=== PATIENT | male | born 1995 | race Caucasian/White ===

== ENCOUNTER 2019-04-23 14:48 | Inpatient (IN) | payer MEDICAID, SELFPAY ==
[2019-04-23 14:50] VITALS: BP 121/86; PULSE 69; RESP 17; TEMP 36.7; O2SAT 96; BMI 25.7
--- NOTE | 2019-04-23 15:20 | ED.DCSUM_ITS ---
History of Present Illness Chief Complaint: Suicidal Informant: Patient Onset: Days Context: Gradual Onset Timing: Continuous Associated Symptoms: Depressed, Suicidal Thoughts. Negative for: Visual Hallucinations, Auditory Hallucinations Specific plan (suicidal thought): No plan Narrative: Patient is a 23-year-old male with history of depression suicidal ideations as well as heroin abuse presenting with increased depression and suicidal ideations. Patient states over the past week he has had relationship issues and that is caused him to spiral. He also notes he has been off of Zoloft for the past 1 to 2 weeks. He has had increased thoughts of wanting to kill himself and feeling that he be better off . He denies any specific plan. About 4 months ago he was admitted to [facility] for suicidal ideations and drug abuse. Patient called them today and they recommended he come to the nearest emergency room for further evaluation and possible transfer to their facility. Patient notes he is also been using heroin again over the last week. He states he snorts it. He denies any other complaints at this time. He denies any homicidal ideations. He denies any hallucinations. Patient lives home alone. Prior similar symptoms: Yes Past Medical History - Allergies and Home Meds Allergies/Adverse Reactions: Allergies No Known Allergies Allergy (Verified 04/23/19 14:49) Past Medical History: - - Depression Surgical History: - - Left knee surgery Lives: Alone Smoking Status: Current every day smoker Drugs: Heroin - Family History Maternal Family History: Reports: - - He reported that his mother has depression. Also previously his mother was using drugs Paternal Family History: Reports: - - Previously his father was using drugs Review of Systems General: Denies: Chills, Fever, Sweats Eyes: Denies: Visual changes - bilaterally, Diplopia ENT: Denies: Rhinorrhea, Sore throat Cardiovascular: Denies: Chest pain, Palpitations Respiratory: Denies: Dyspnea, Cough, Dyspnea on exertion Gastrointestinal: Denies: Abdominal pain, Nausea, Vomiting, Diarrhea, Melena, Hematochezia Genitourinary: Denies: Dysuria, Hematuria, Frequency Musculoskeletal: Denies: Back pain, Extremity Pain Skin: Denies: Rash, Wounds Neurological: Denies: Headache, Weakness, Numbness Psych: Reports: Depression, Suicidal thoughts, Suicidal ideations. Denies: Anxiety Physical Exam Vital Signs/Narrative: Vital Signs Temp Pulse Resp BP Pulse Ox 04/23/19 14:50 98.1 F 69 17 121/86 H 96 Inital Vital Signs reviewed: Yes General: Well nourished, Well developed Head: Normocephalic, Atraumatic Eyes: Perrl, EOMI ENT: Moist mucous membranes, No rhinorrhea Neck: Supple, Nontender Cardiovascular: Regular rate, Regular rhythm, No murmurs Respiratory: No distress, CTA bilaterally, Chest nontender Abdomen: Soft, Nontender, Nondistended, Normal bowel sounds Back: Nontender, Normal Inspection Extremities: Nontender, No Edema Skin: Normal color, No rash Neurological: Alert, Oriented x3, Cranial nerves II-XII grossly intact, Normal Strength, Normal Sensation Psych: Normal Speech Pattern, Normal Stable Appropriate Affect, Good Insight, Normal Appearance, Depressed, Suicidal thoughts. Negative for: Homicidal thoughts, Hallucinations, Delusions, Paranoid Ideation Diagnostic/Tx/Re-eval Laboratory Data 04/23/19 04/23/19 04/23/19 15:24 15:24 15:24 WBC 13.0 H RBC 4.77 Hgb 14.1 Hct 43.4 MCV 91.0 MCH 29.6 MCHC 32.5 RDW Std Deviation 40.6 RDW Coeff of González 12.4 Plt Count 430 MPV 8.1 Immature Gran % (Auto) 0.400 Neut % (Auto) 76.6 H Lymph % (Auto) 16.2 L [place] % (Auto) 5.1 Eos % (Auto) 1.3 Baso % (Auto) 0.4 Absolute Neuts (auto) 10.0 H Absolute Lymphs (auto) 2.10 Nucleated RBC % 0 Sodium 140 Potassium 4.1 Chloride 104 Carbon Dioxide 31.0 Anion Gap 5 BUN 12 Creatinine 0.96 Estim Creat Clear Calc 135.25 Est GFR (MDRD) Af Amer 123 Est GFR (MDRD) Non-Af 102 BUN/Creatinine Ratio 12.5 Glucose 95 Calcium 9.4 Urine Color Urine Clarity Urine pH Ur Specific [place] Urine Protein Urine Glucose (UA) Urine Ketones Urine Occult Blood Urine Nitrite Urine Bilirubin Urine Urobilinogen Ur Leukocyte Esterase Urine RBC Urine WBC Ur Squamous Epith Cells Urine Bacteria Urine Mucus Urine Opiates Screen Urine Methadone Screen Ur Barbiturates Screen Ur Phencyclidine Scrn Ur Amphetamines Screen U Methamphetamin-MDMA U Benzodiazepines Scrn Urine Cocaine Screen U Cannabinoids Screen Ur Drug Screen Comment Ethyl Alcohol < 3.0 04/23/19 04/23/19 15:40 15:40 WBC RBC Hgb Hct MCV MCH MCHC RDW Std Deviation RDW Coeff of González Plt Count MPV Immature Gran % (Auto) Neut % (Auto) Lymph % (Auto) [place] % (Auto) Eos % (Auto) Baso % (Auto) Absolute Neuts (auto) Absolute Lymphs (auto) Nucleated RBC % Sodium Potassium Chloride Carbon Dioxide Anion Gap BUN Creatinine Estim Creat Clear Calc Est GFR (MDRD) Af Amer Est GFR (MDRD) Non-Af BUN/Creatinine Ratio Glucose Calcium Urine Color Yellow Urine Clarity Clear Urine pH 7.0 Ur Specific [place] 1.015 Urine Protein Negative Urine Glucose (UA) Normal Urine Ketones 5 H Urine Occult Blood Negative Urine Nitrite Negative Urine Bilirubin Negative Urine Urobilinogen Normal Ur Leukocyte Esterase Negative Urine RBC 0 SEEN Urine WBC 0 SEEN Ur Squamous Epith Cells 0 SEEN Urine Bacteria 0 SEEN Urine Mucus 0 SEEN Urine Opiates Screen POSITIVE H Urine Methadone Screen NEGATIVE Ur Barbiturates Screen NEGATIVE Ur Phencyclidine Scrn NEGATIVE Ur Amphetamines Screen NEGATIVE U Methamphetamin-MDMA NEGATIVE U Benzodiazepines Scrn NEGATIVE Urine Cocaine Screen NEGATIVE U Cannabinoids Screen NEGATIVE Ur Drug Screen Comment Ethyl Alcohol Restraints applied: No Evaluated for depression and suicidal ideations. He does not have a plan but is requesting psychiatric help. He does live home alone. Patient does have a mild leukocytosis but no obvious source of infection. His vital signs are normal. Likely this is just reactive. Antibiotics not indicated. Urine drug screen is positive for opioids. Patient does admit to heroin use. Patient is medically cleared and crisis is consulted for further psychiatric evaluation. Patient is cooperative and stable in the emergency room. Evaluated by crisis. At this time they do not think he meets criteria for involuntary admission. Due to his insurance he is not able to be accepted any inpatient psychiatric hospital. He is evaluated by 180 who is concerned that he is having acute withdrawal symptoms. Patient does admit to using 1 g of fentanyl/heroin daily. He last used at noon today. Patient is interested in detox. Because of this, he will be admitted to medicine for inpatient detox and likely transition to residential services for detox and psychiatric care at that time. I do think he is safe for this plan and patient is agreeable. ED Disposition - Plan for ED Patient: Disposition: Acute [facility] Diagnosis: Suicidal ideation, Opioid abuse
[2019-04-23 15:41] LABS: Basophil# 0.05 X10^3/uL; Basophil% 0.4 % (0-1); Eosinophil# 0.17 X10^3/uL; Eosinophils% 1.3 % (0-5); Hematocrit 43.4 % (40-54); Hemoglobin 14.1 g/dL (13.0-16.5); Lymphocyte % 16.2 % (19-41); Mean Corp Hgb Conc 32.5 g/dL (32-36); Mean Corpuscular Hgb 29.6 pg (27.0-32.0); Mean Platelet Vol. 8.1 fl (6.2-12.0); Monocyte# 0.66 X10^3/uL; Monocyte% 5.1 % (0-10); NRBC Flagged by Analyzer 0 % (0-5); Neutrophil # 9.95 X10^3/uL (2.7-7.7); Neutrophil % 76.6 % (47-70); Platelet Count 430 K/mm3 (150-450); RBC Distribution Width CV 12.4 % (11.6-14.6); RBC Distribution Width SD 40.6 fl (35.1-43.9); Red Blood Count 4.77 M/mm3 (4.6-6.2)
[2019-04-23 15:47] LABS: Anion Gap 5 (5-15); BUN 12 mg/dL (7-18); BUN/Creat Ratio 12.5 RATIO (10-20); Calcium,Total 9.4 mg/dL (8.5-10.1); Chloride 104 mmol/L (98-107); Creatinine, Serum 0.96 mg/dL (0.70-1.30); EST Glomerular Filtration Rate 102 mL/min (>60); Est Glom Filt Rate - Afr Amer 123 mL/min (>60); Estimated Creatinine Clearance 135.25 ml/min; Glucose 95 mg/dL (74-106); Potassium 4.1 mmol/L (3.5-5.1); Sodium Level 140 mmol/L (136-145)
[2019-04-23 16:09] LABS: Bacteria 0 SEEN /hpf (None Seen); Mucous, Urine 0 SEEN /hpf (<or=2+); Red Blood Cells-Urine 0 SEEN /hpf (0-5); Squamous Epithelial Cells - UA 0 SEEN /hpf (0-5); White Blood Cells 0 SEEN /hpf (0-5)
[2019-04-23 16:21] LABS: Color, Urine Yellow (Yellow); Glucose, Dipstick Normal (Normal); Ketone-Dipstick 5 mg/dl (Negative); Leukocyte Esterase-Dipstick Negative /ul (Negative); Nitrite-Dipstick Negative (Negative); Occult Blood-Urine Negative /ul (Negative); Protein-Dipstick Negative (Negative); Specific Gravity, Urine 1.015 (1.002-1.030); Urine Bilirubin Dipstick Negative (Negative); Urine Clarity Clear (Clear); Urine Urobilinogen Normal (Normal)
[2019-04-23 16:30] LABS: Amphetamine Urine VISTA NEGATIVE (<1000 ng/mL); Barbiturate Urine VISTA NEGATIVE (< 200 ng/mL); Benzodiazepine Urine VISTA NEGATIVE (< 200 ng/mL); Cocaine Urine VISTA NEGATIVE (< 300 ng/mL); Ecstacy Urine VISTA NEGATIVE (< 500 ng/mL); Methadone Urine VISTA NEGATIVE (< 300 ng/mL); PCP Urine VISTA NEGATIVE (< 25 ng/mL); THC Urine VISTA NEGATIVE (< 50 ng/mL); Vista UDS pH Range 6
--- NOTE | 2019-04-23 16:37 | ED.RN ---
PT UNDER 1:1 OBSERVATION BEGINNING IN TRIAGE AFTER SUICIDE RISK DETERMINED.
[2019-04-23 16:48] LABS: Alcohol, Blood (Medical)-Serum < 3.0 mg/dL
[2019-04-23 18:08] VITALS: RESP 16
--- NOTE | 2019-04-23 19:52 | HP.PCM_ITS ---
Problem List (1) Opioid abuse Status: Acute (2) Suicidal ideation Status: Acute History of Present Illness Date of Admission: 04/23/19 Chief Complaint: detox from opioids and suicidal ideation. The patient is a 23 year old M with a significant history of anxiety; depression and opioid abuse who presented for detoxification and for suicidal ideation. Patient uses heroin and fentanyl. He reports that it has been a long time since he used heroin. Last time he used fentanyl was about noon of 04/23/2019 which was few hours before presentation. He snorts the heroin. He is about 1 g of heroin every day. He thinks that he is beginning to withdraw. He reports his withdrawal symptoms as diaphoresis; muscle aches and general body tremors. He reports suicidal ideation without any plan. Patient was evaluated at the emergency department by crisis and the plan is to admit the patient for detoxification and possibly consider an inpatient 180 admission afterwards. Past Medical History Medical History: Medical History (Last Reviewed 04/23/19 @ 21:00 by Jeremy Akers MD) Opioid dependence F11.20 Allergies No Known Allergies Allergy (Verified 04/23/19 14:49) Home Medications: Ambulatory Orders Medication Instructions Recorded Buprenorphine HCl/Naloxone HCl 1 ea SL BID 04/23/19 [Buprenorp-Nalox 4-1 mg Sl Film] Gabapentin [Neurontin] 300 mg PO QHS 04/23/19 Hydroxyzine Pamoate 50 mg PO TID PRN 04/23/19 Mirtazapine 7.5 mg PO QHS 04/23/19 Quetiapine Fumarate 50 mg PO QHS 04/23/19 Quetiapine Fumarate 100 mg PO QHS 04/23/19 Sertraline HCl 50 mg PO DAILY 04/23/19 Surgical History: - - Left knee surgery Lives: Alone Smoking Status: Former smoker Drugs: Heroin - *Family History Maternal History Items: - - He reported that his mother has depression. Also previously his mother was using drugs Paternal History Items: - - Previously his father was using drugs Review of Systems Constitutional: Denies: Chills, Fever, Weight Change HEENT: Denies: Head Aches, Sinus Congestion, Sinus Drainage Cardiovascular: Denies: Chest Pain, Palpitations Respiratory: Denies: Cough, Shortness of breath at rest, Sputum production Gastrointestinal: Denies: Abdominal Pain, Nausea, Vomiting Genitourinary: Denies: Dysuria Musculoskeletal: Reports: Muscle pain. Denies: Joint Pain, Joint Tenderness Skin: Denies: Rash, Wounds Neurological: Denies: Numbness, Tingling, Focal weakness Psychiatric: Reports: Anxiety, Depression, Suicidal Ideations. Denies: Homicidal Ideations Hematologic/ Lymphatic: Denies: Easy Bruising, Easy Bleeding VTE Information - Inpt Only VTE Present on Admission: No VTE Mechan Device Prophylaxis: None VTE Pharm Prophylaxis ordered?: No Reason prophylaxis not ordered:: Treatment Not Indicated - Low risk encouraged ambulate Patient Problems: Active and Suspected Problems (Last Updated 04/23/19 @ 20:25 by Jeremy Akers MD) Opioid abuse (Acute) Suicidal ideation (Acute) - Physical Exam Vitals/I&O's: Vital Signs Temp Pulse Resp BP Pulse Ox 98.1 F 69 16 121/86 H 96 04/23/19 14:50 04/23/19 14:50 04/23/19 18:08 04/23/19 14:50 04/23/19 14:50 Oxygen Delivery Method Room Air Weight: 88.451 kg Body Mass Index (BMI) 25.7 General: Alert, Oriented x3, Cooperative HEENT: Atraumatic, PERRLA, EOMI, Normocephalic Neck: Supple, No JVD, Negative Carotid Bruits Lungs: Clear to auscultation, Normal air movement Cardiovascular: Regular rate, No murmurs Abdomen: Bowel Sounds Present, Soft, Non Tender Extremities: No edema, Capillary Refill Less than 3 Seconds Skin: No rashes, No breakdown Musculoskeletal: No Tenderness to Palpation of Joints or Extremities Neurological: Cranial nerves II-XII grossly intact Psych/Mental Status: Normal Affect, Appropriate Laboratory Results 04/23/19 15:24: WBC 13.0 H, RBC 4.77, Hgb 14.1, Hct 43.4, MCV 91.0, MCH 29.6, MCHC 32.5, RDW Std Deviation 40.6, RDW Coeff of González 12.4, Plt Count 430, MPV 8.1, Immature Gran % (Auto) 0.400, Neut % (Auto) 76.6 H, Lymph % (Auto) 16.2 L, [place] % (Auto) 5.1, Eos % (Auto) 1.3, Baso % (Auto) 0.4, Absolute Neuts (auto) 10.0 H, Absolute Lymphs (auto) 2.10, Nucleated RBC % 0 04/23/19 15:24: Sodium 140, Potassium 4.1, Chloride 104, Carbon Dioxide 31.0, Anion Gap 5, BUN 12, Creatinine 0.96, Estim Creat Clear Calc 135.25, Est GFR (MDRD) Af Amer 123, Est GFR (MDRD) Non-Af 102, BUN/Creatinine Ratio 12.5, Glucose 95, Calcium 9.4 04/23/19 15:24: Ethyl Alcohol < 3.0 04/23/19 15:40: Urine Opiates Screen POSITIVE H, Urine Methadone Screen NEGATIVE, Ur Barbiturates Screen NEGATIVE, Ur Phencyclidine Scrn NEGATIVE, Ur Amphetamines Screen NEGATIVE, U Methamphetamin-MDMA NEGATIVE, U Benzodiazepines Scrn NEGATIVE, Urine Cocaine Screen NEGATIVE, U Cannabinoids Screen NEGATIVE, Ur Drug Screen Comment 04/23/19 15:40: Urine Color Yellow, Urine Clarity Clear, Urine pH 7.0, Ur Specific [place] 1.015, Urine Protein Negative, Urine Glucose (UA) Normal, Urine Ketones 5 H, Urine Occult Blood Negative, Urine Nitrite Negative, Urine Bili miles Negative, Urine Urobilinogen Normal, Ur Leukocyte Esterase Negative, Urine RBC 0 SEEN, Urine WBC 0 SEEN, Ur Squamous Epith Cells 0 SEEN, Urine Bacteria 0 SEEN, Urine Mucus 0 SEEN Assessment/Plan All Active Problems (Last Updated 04/23/19 @ 20:25 by Jeremy Akers MD) Opioid abuse (Acute) Suicidal ideation (Acute) The patient is a 23 year old M with a significant history of anxiety; depression and opioid abuse who presented for detoxification and for suicidal ideation. Opiate dependence and withdrawal Detoxification with buprenorphine and adjunctive medication. Suicidal ideation Counseled Case management consult. Leukocytosis Likely reactive. Trend. Depression and anxiety Continue home Seroquel and mirtazapine DVT prophylaxis Low risk Encouraged to ambulate Code Visit Inpatient E&M: 59315 Init Hosp L2
--- NOTE | 2019-04-23 20:03 | ED.RN ---
PER DR BENITO OK TO D/C SUICIDE PRECAUTIONS AND SITTER
[2019-04-23 22:15] VITALS: BMI 25.1
[2019-04-23 22:17] VITALS: BP 130/80; PULSE 74; RESP 18; TEMP 36.7; O2SAT 100
[2019-04-23] MEDS: QUEtiapine 25 MG Tablet 50 MG PO (22:23)
[2019-04-23] MEDS: Mirtazapine 15 MG Tablet 7.5 MG PO (22:23)
[2019-04-23] MEDS: Buprenorphine HCl 2 MG TAB.SUBL SL (22:24)
[2019-04-23] MEDS: QUEtiapine 100 MG Tablet PO (22:24)
[2019-04-24 04:00] VITALS: BP 107/68; PULSE 65; RESP 16; TEMP 37.1; O2SAT 99
[2019-04-24] MEDS: Buprenorphine HCl 2 MG TAB.SUBL SL ×3 (04:48→21:28)
[2019-04-24 05:32] LABS: Absolute Lymphocyte Count 2.91 X10^3/uL (0.83-4.51); Absolute Neutrophil Count 7.1 X10^3/uL (2.0-7.7); Basophil# 0.05 X10^3/uL; Basophil% 0.4 % (0-1); Eosinophil# 0.33 X10^3/uL; Hematocrit 44.4 % (40-54); Hemoglobin 14.4 g/dL (13.0-16.5); Lymphocyte # 2.91 X10^3/ul (4.0); Lymphocyte % 26.1 % (19-41); Mean Corp Hgb Conc 32.4 g/dL (32-36); Mean Corpuscular Hgb 28.7 pg (27.0-32.0); Mean Corpuscular Volume 88.4 fL (80-94); Mean Platelet Vol. 8.4 fl (6.2-12.0); Monocyte# 0.74 X10^3/uL; Monocyte% 6.6 % (0-10); NRBC Flagged by Analyzer 0 % (0-5); Neutrophil # 7.09 X10^3/uL (2.7-7.7); Neutrophil % 63.5 % (47-70); Platelet Count 397 K/mm3 (150-450); RBC Distribution Width CV 12.7 % (11.6-14.6); RBC Distribution Width SD 40.7 fl (35.1-43.9); Red Blood Count 5.02 M/mm3 (4.6-6.2); White Blood Count 11.2 K/mm3 (4.4-11.0)
--- NOTE | 2019-04-24 09:14 | PCM.PN.HOSP ---
Patient Problems: Active and Suspected Problems (Last Reviewed 04/23/19 @ 21:00 by Jeremy Akers MD) Opioid abuse (Acute) Suicidal ideation (Acute) Reason for Visit: Follow-up acute opioid withdrawal and suicidal ideation Subjective: Patient is a 23-year-old male with history of depression with anxiety as well as opiate dependence admitted with acute opioid withdrawal and suicidal ideation admitted to the regular nursing floor for further management. Objective: GENERAL: cooperative HEENT: Atraumatic; EYES; Anicteric, Normal Conjunctiva NECK; supple, normal thyroid, RESPIRATORY: Diminished to auscultation CARDIOVASCULAR: Regular S1 S2, GI: soft, normoactive bowel sounds, : No Renal angle tenderness; EXTREMITIES: No edema, no clubbing, MUSCULOSKELETAL: no muscle waisting NEURO: Awake; no lateralizing signs. SKIN: No Rash PSYCH; Flat affect Vitals/I&O's: Vital Signs Temp Pulse Resp BP Pulse Ox 98.8 F 65 16 107/68 99 04/24/19 04:00 04/24/19 04:00 04/24/19 04:00 04/24/19 04:00 04/24/19 04:00 Oxygen Delivery Method Room Air Weight: 86.4 kg Body Mass Index (BMI) 25.1 Intake and Output for Last 24 Hours 04/22/19 04/23/19 04/24/19 23:59 23:59 23:59 Intake Total 400 / 400 Balance 400 / 400 Laboratory Results 04/23/19 15:24: WBC 13.0 H, RBC 4.77, Hgb 14.1, Hct 43.4, MCV 91.0, MCH 29.6, MCHC 32.5, RDW Std Deviation 40.6, RDW Coeff of González 12.4, Plt Count 430, MPV 8.1, Immature Gran % (Auto) 0.400, Neut % (Auto) 76.6 H, Lymph % (Auto) 16.2 L, [place] % (Auto) 5.1, Eos % (Auto) 1.3, Baso % (Auto) 0.4, Absolute Neuts (auto) 10.0 H, Absolute Lymphs (auto) 2.10, Nucleated RBC % 0 04/23/19 15:24: Sodium 140, Potassium 4.1, Chloride 104, Carbon Dioxide 31.0, Anion Gap 5, BUN 12, Creatinine 0.96, Estim Creat Clear Calc 135.25, Est GFR (MDRD) Af Amer 123, Est GFR (MDRD) Non-Af 102, BUN/Creatinine Ratio 12.5, Glucose 95, Calcium 9.4 04/23/19 15:24: Ethyl Alcohol < 3.0 04/23/19 15:40: Urine Opiates Screen POSITIVE H, Urine Methadone Screen NEGATIVE, Ur Barbiturates Screen NEGATIVE, Ur Phencyclidine Scrn NEGATIVE, Ur Amphetamines Screen NEGATIVE, U Methamphetamin-MDMA NEGATIVE, U Benzodiazepines Scrn NEGATIVE, Urine Cocaine Screen NEGATIVE, U Cannabinoids Screen NEGATIVE, Ur Drug Screen Comment 04/23/19 15:40: Urine Color Yellow, Urine Clarity Clear, Urine pH 7.0, Ur Specific [place] 1.015, Urine Protein Negative, Urine Glucose (UA) Normal, Urine Ketones 5 H, Urine Occult Blood Negative, Urine Nitrite Negative, Urine Bilirubin Negative, Urine Urobilinogen Normal, Ur Leukocyte Esterase Negative, Urine RBC 0 SEEN, Urine WBC 0 SEEN, Ur Squamous Epith Cells 0 SEEN, Urine Bacteria 0 SEEN, Urine Mucus 0 SEEN 04/24/19 04:57: WBC 11.2 H, RBC 5.02, Hgb 14.4, Hct 44.4, MCV 88.4, MCH 28.7, MCHC 32.4, RDW Std Deviation 40.7, RDW Coeff of González 12.7, Plt Count 397, MPV 8.4, Immature Gran % (Auto) 0.400, Neut % (Auto) 63.5, Lymph % (Auto) 26.1, [place] % (Auto) 6.6, Eos % (Auto) 3.0, Baso % (Auto) 0.4, Absolute Neuts (auto) 7.1, Absolute Lymphs (auto) 2.91, Nucleated RBC % 0 Current Medications Acetaminophen (Tylenol) 650 mg PO Q6H PRN PRN PRN Reason: Pain Score 1-10/Temp > 100.7 F Buprenorphine HCl (Buprenorphine Hcl) 4 mg SL Q8H MARKIE; Taper Stop: 04/27/19 01:29 Last Admin: 04/24/19 04:48 Dose: 4 mg Documented by: Dicyclomine HCl (Bentyl) 20 mg PO Q6H PRN PRN PRN Reason: Abdomnial Discomfort Glucagon () 1 mg IM .X1 PRN PRN Reason: Hypoglycemia Hydroxyzine Pamoate (Vistaril Pamoate Capsule) 50 mg PO Q6H PRN PRN PRN Reason: Mild Anxiety Dextrose (Dextrose 10%-Water) 250 mls @ 999 mls/hr IV .Q16M PRN; Protocol PRN Reason: HYPOGLYCEMIA Mirtazapine (Remeron) 7.5 mg PO QHS [facility] Last Admin: 04/23/19 22:23 Dose: 7.5 mg Documented by: Nutritional Formula (Lactose Free) (Ensure Enlive) 120 ml PO 4X/DAY [facility] Ondansetron HCl (Zofran) 4 mg IV Q8H PRN PRN PRN Reason: NAUSEA/VOMITING Pramipexole Dihydrochloride (Mirapex) 0.25 mg PO Q12H PRN PRN PRN Reason: Restless Legs Quetiapine Fumarate (Seroquel) 50 mg PO QHS [facility] Last Admin: 04/23/19 22:23 Dose: 50 mg Documented by: Quetiapine Fumarate (Seroquel) 100 mg PO QHS [facility] Last Admin: 04/23/19 22:24 Dose: 100 mg Documented by: Sertraline HCl (Zoloft) 50 mg PO DAILY [facility] Medical Necessity - Tobacco Use Smoking Status: Former smoker Tobacco Use: Cigarettes Assessment/Plan All Active Problems (Last Reviewed 04/23/19 @ 21:00 by Jeremy Akers MD) Opioid abuse (Acute) Suicidal ideation (Acute) Patient is a 23-year-old male with history of depression with anxiety as well as opiate dependence admitted with acute opioid withdrawal and suicidal ideation admitted to the regular nursing floor for further management. 1. Acute opioid withdrawal ?Patient was counseled regarding his opioid dependence. Admitted to regular nursing floor for medical stabilization using Subutex ?Patient still remains significantly symptomatic complaining of leg and abdominal cramps. In addition to Subutex patient has adjuvant medications to help with the symptoms. Did explain to patient he needs to be medically stable prior to be evaluated by the crisis team for his depression with suicidal ideation 2. Suicidal ideation ?Patient currently being monitored one-to-one consult placed to the crisis team 3. Depression with anxiety patient is on Seroquel as well as mirtazapine did continue 4. DVT prophylaxis low risk did encourage early ambulation 5. Tobacco dependence counseled on cessation, offered nicotine patch for tobacco cravings Code Visit Inpatient E&M: 10681 Subs Hosp L3
[2019-04-24 09:16] VITALS: BP 114/74; PULSE 62; RESP 16; TEMP 36.7; O2SAT 98
--- NOTE | 2019-04-24 09:28 | CASEMGMT ---
Social Work Note Per physician, pt will need to be medically stable before being evaluated by crisis. SW to remain available. Stephanie Myers CASCARA BARK CUTTER, WOODS SUPERINTENDENT
[2019-04-24] MEDS: Acetaminophen 325 MG Tablet 650 MG PO (09:34)
[2019-04-24] MEDS: Sertraline 50 MG Tablet PO (09:34)
[2019-04-24] MEDS: Pramipexole Di-HCl 0.25 MG Tablet PO (11:41)
[2019-04-24] MEDS: hydrOXYzine PAM 25 MG Capsule 50 MG PO ×2 (11:41→21:28)
[2019-04-24 13:23] VITALS: BP 120/88; PULSE 77; RESP 16; TEMP 36.6; O2SAT 98
--- NOTE | 2019-04-24 14:02 | CASEMGMT ---
Social Work Note SW received call from David at [facility] [phone] in regards to pt. David states she would like to be notified day before pt discharges so she can arrange an appointment for pt. SW updated David that pt is still with a sitter due to suicidal ideations and that physician is wanting pt to be medically cleared/stable and have crisis come evaluate pt again. David states understanding, again just states she would like to be notified when pt discharges so an appointment can be made. SW to follow up with pt once pt is medically stable and evaluated by crisis. Stephanie Myers COMPENSATION PROGRAMS MANAGER, PATIENT ASSISTANT
--- NOTE | 2019-04-24 14:28 | CHAPLAIN ---
Type of Pastoral Visit _x__ Initial Visit ___ Follow-up Visit ___ On-call Visit ___ General Patient Visit ___ Spiritual Assessment ___ Family Conference ___ Bereavement ___ Rapid Response ___ Code Blue ___ Other (describe below) Pastoral Care Referral From _x__ Patient ___ Family ___ Nurse ___ Physician ___ Manager Nc ___ Healthcare Or Medical ___ Other (describe below) Sacrament/Intervention _x__ Active listening ___ Anointing ___ Christianity ___ Bereavement ___ Communion ___ Morenita exploration ___ _x__ Life review _x__ Prayer ___ Reconciliation ___ Sacrament of Sick _x__ Supportive presence ___ Wedding ___ Other (describe below) Pastoral Comments patient had a sitter at this time; pt was very willing to talk to machine shop instructor; pt expressed desire to stop drug use and get help; pt admits to bad decisions in past as well as past rehab stay; pt was clean for a month after rehab and had a job and car before this relapse; pt is looking for options for recovery program;
[2019-04-24 17:19] VITALS: BP 126/81; PULSE 81; RESP 16; TEMP 36.9; O2SAT 99
[2019-04-24] MEDS: Mirtazapine 15 MG Tablet 7.5 MG PO (21:50)
[2019-04-24] MEDS: QUEtiapine 25 MG Tablet 50 MG PO (21:51)
[2019-04-24] MEDS: QUEtiapine 100 MG Tablet PO (21:51)
[2019-04-24 23:00] VITALS: BP 115/70; PULSE 104; RESP 16; TEMP 36.7; O2SAT 100
[2019-04-25 04:00] VITALS: PULSE 83
[2019-04-25 05:15] VITALS: BP 112/71; PULSE 83; RESP 16; TEMP 36.6; O2SAT 99
[2019-04-25] MEDS: Buprenorphine HCl 2 MG TAB.SUBL SL ×2 (05:18→13:51)
--- NOTE | 2019-04-25 07:54 | PCM.PN.HOSP ---
Patient Problems: Active and Suspected Problems (Last Reviewed 04/23/19 @ 21:00 by Jeremy Akers MD) Opioid abuse (Acute) Suicidal ideation (Acute) Reason for Visit: Follow-up acute opioid withdrawal and suicidal ideation Subjective: Seen admits to improvement in his abdominal and leg cramps. Objective: GENERAL: cooperative HEENT: Atraumatic; EYES; Anicteric, Normal Conjunctiva NECK; supple, normal thyroid, RESPIRATORY: Diminished to auscultation CARDIOVASCULAR: Regular S1 S2, GI: soft, normoactive bowel sounds, : No Renal angle tenderness; EXTREMITIES: No edema, no clubbing, MUSCULOSKELETAL: no muscle waisting NEURO: Awake; no lateralizing signs. SKIN: No Rash PSYCH; Flat affect Vitals/I&O's: Vital Signs Temp Pulse Resp BP Pulse Ox 97.8 F 83 16 112/71 99 04/25/19 05:15 04/25/19 05:15 04/25/19 05:15 04/25/19 05:15 04/25/19 05:15 Oxygen Delivery Method Room Air Weight: 86.4 kg Body Mass Index (BMI) 25.1 Intake and Output for Last 24 Hours 04/23/19 04/24/19 04/25/19 23:59 23:59 23:59 Intake Total 2500 / 3500 1000 / 1000 Balance 2500 / 3500 1000 / 1000 Current Medications Acetaminophen (Tylenol) 650 mg PO Q6H PRN PRN PRN Reason: Pain Score 1-10/Temp > 100.7 F Last Admin: 04/24/19 09:34 Dose: 650 mg Documented by: Buprenorphine HCl (Buprenorphine Hcl) 2 mg SL Q8H MARKIE; Taper Stop: 04/27/19 01:29 Last Admin: 04/25/19 05:18 Dose: 2 mg Documented by: Dicyclomine HCl (Bentyl) 20 mg PO Q6H PRN PRN PRN Reason: Abdomnial Discomfort Glucagon () 1 mg IM .X1 PRN PRN Reason: Hypoglycemia Hydroxyzine Pamoate (Vistaril Pamoate Capsule) 50 mg PO Q6H PRN PRN PRN Reason: Mild Anxiety Last Admin: 04/24/19 21:28 Dose: 50 mg Documented by: Dextrose (Dextrose 10%-Water) 250 mls @ 999 mls/hr IV .Q16M PRN; Protocol PRN Reason: HYPOGLYCEMIA Mirtazapine (Remeron) 7.5 mg PO QHS [facility] Last Admin: 04/24/19 21:50 Dose: 7.5 mg Documented by: Nicotine (Nicoderm Cq (Pbkc)) 21 mg TRANSDERM. DAILY [facility] Last Admin: 04/24/19 10:58 Dose: 21 mg Documented by: Nutritional Formula (Lactose Free) (Ensure Enlive) 120 ml PO 4X/DAY [facility] Last Admin: 04/24/19 21:28 Dose: 120 ml Documented by: Ondansetron HCl (Zofran) 4 mg IV Q8H PRN PRN PRN Reason: NAUSEA/VOMITING Pramipexole Dihydrochloride (Mirapex) 0.25 mg PO Q12H PRN PRN PRN Reason: Restless Legs Last Admin: 04/24/19 11:41 Dose: 0.25 mg Documented by: Quetiapine Fumarate (Seroquel) 50 mg PO QHS [facility] Last Admin: 04/24/19 21:51 Dose: 50 mg Documented by: Quetiapine Fumarate (Seroquel) 100 mg PO QHS [facility] Last Admin: 04/24/19 21:51 Dose: 100 mg Documented by: Sertraline HCl (Zoloft) 50 mg PO DAILY [facility] Last Admin: 04/24/19 09:34 Dose: 50 mg Documented by: STROKE Vital Signs/Narrative: Vital Signs Temp Pulse Resp BP Pulse Ox 04/25/19 05:15 97.8 F 83 16 112/71 99 04/25/19 04:00 83 Medical Necessity - Tobacco Use Smoking Status: Former smoker Tobacco Use: Cigarettes Assessment/Plan All Active Problems (Last Reviewed 04/23/19 @ 21:00 by Jeremy Akers MD) Opioid abuse (Acute) Suicidal ideation (Acute) Patient is a 23-year-old male with history of depression with anxiety as well as opiate dependence admitted with acute opioid withdrawal and suicidal ideation admitted to the regular nursing floor for further management. 1. Acute opioid withdrawal ?Patient was counseled regarding his opioid dependence. Admitted to regular nursing floor for medical stabilization using Subutex ?Patient still remains significantly symptomatic complaining of leg and abdominal cramps. In addition to Subutex patient has adjuvant medications to help with the symptoms. Did explain to patient he needs to be medically stable prior to be evaluated by the crisis team for his depression with suicidal ideation ?04/25/2019; patient seen improving symptomatically 2. Suicidal ideation ?Patient currently being monitored one-to-one consult placed to the crisis team ?04/25/2019; plan is to consult the crisis team on 04/26/2019. 3. Depression with anxiety patient is on Seroquel as well as mirtazapine did continue 4. DVT prophylaxis low risk did encourage early ambulation 5. Tobacco dependence counseled on cessation, offered nicotine patch for tobacco cravings Code Visit Inpatient E&M: 21963 Subs Hosp L2
[2019-04-25 10:00] VITALS: BP 126/74; PULSE 87; RESP 18; TEMP 37.1; O2SAT 99
[2019-04-25] MEDS: Sertraline 50 MG Tablet PO (10:27)
[2019-04-25 17:52] VITALS: BP 127/92; PULSE 85; RESP 18; TEMP 37.2; O2SAT 99
[2019-04-25 22:30] VITALS: BP 123/84; PULSE 86; RESP 16; TEMP 36.8; O2SAT 99
[2019-04-25] MEDS: Mirtazapine 15 MG Tablet 7.5 MG PO (22:37)
[2019-04-25] MEDS: QUEtiapine 100 MG Tablet PO (22:37)
[2019-04-25] MEDS: QUEtiapine 25 MG Tablet 50 MG PO (22:37)
[2019-04-25] MEDS: hydrOXYzine PAM 25 MG Capsule 50 MG PO (22:38)
[2019-04-26] MEDS: Buprenorphine HCl 2 MG TAB.SUBL SL ×2 (02:01→13:08)
[2019-04-26 06:00] VITALS: BP 101/72; PULSE 65; RESP 16; TEMP 36.7; O2SAT 100
--- NOTE | 2019-04-26 08:12 | PN_ITS ---
Patient Problems: Active and Suspected Problems (Last Reviewed 04/23/19 @ 21:00 by Jeremy Akers MD) Opioid abuse (Acute) Suicidal ideation (Acute) Reason for Visit: Follow-up acute opioid withdrawal and suicidal ideation Subjective: Seen symptoms significantly improved however still complains of feeling anxious. Patient is medically stable to be evaluated by the crisis center. Objective: GENERAL: cooperative HEENT: Atraumatic; EYES; Anicteric, Normal Conjunctiva NECK; supple, normal thyroid, RESPIRATORY: Diminished to auscultation CARDIOVASCULAR: Regular S1 S2, GI: soft, normoactive bowel sounds, : No Renal angle tenderness; EXTREMITIES: No edema, no clubbing, MUSCULOSKELETAL: no muscle waisting NEURO: Awake; no lateralizing signs. SKIN: No Rash PSYCH; Flat affect Vitals/I&O's: Vital Signs Temp Pulse Resp BP Pulse Ox 98.1 F 65 16 101/72 100 04/26/19 06:00 04/26/19 06:00 04/26/19 06:00 04/26/19 06:00 04/26/19 06:00 Oxygen Delivery Method Room Air Weight: 86.4 kg Body Mass Index (BMI) 25.1 Intake and Output for Last 24 Hours 04/24/19 04/25/19 04/26/19 23:59 23:59 23:59 Intake Total 2500 / 3500 2850 / 3450 600 / 600 Output Total 0 / 0 Balance 2500 / 3500 2850 / 3450 600 / 600 Current Medications Acetaminophen (Tylenol) 650 mg PO Q6H PRN PRN PRN Reason: Pain Score 1-10/Temp > 100.7 F Last Admin: 04/24/19 09:34 Dose: 650 mg Documented by: Buprenorphine HCl (Buprenorphine Hcl) 2 mg SL Q12H MARKIE; Taper Stop: 04/27/19 01:29 Last Admin: 04/26/19 02:01 Dose: 2 mg Documented by: Dicyclomine HCl (Bentyl) 20 mg PO Q6H PRN PRN PRN Reason: Abdomnial Discomfort Glucagon () 1 mg IM .X1 PRN PRN Reason: Hypoglycemia Hydroxyzine Pamoate (Vistaril Pamoate Capsule) 50 mg PO Q6H PRN PRN PRN Reason: Mild Anxiety Last Admin: 04/25/19 22:38 Dose: 50 mg Documented by: Dextrose (Dextrose 10%-Water) 250 mls @ 999 mls/hr IV .Q16M PRN; Protocol PRN Reason: HYPOGLYCEMIA Mirtazapine (Remeron) 7.5 mg PO QHS [facility] Last Admin: 04/25/19 22:37 Dose: 7.5 mg Documented by: Nicotine (Nicoderm Cq (Pbkc)) 21 mg TRANSDERM. DAILY [facility] Last Admin: 04/25/19 11:15 Dose: 21 mg Documented by: Nutritional Formula (Lactose Free) (Ensure Enlive) 120 ml PO 4X/DAY [facility] Last Admin: 04/25/19 22:37 Dose: 120 ml Documented by: Ondansetron HCl (Zofran) 4 mg IV Q8H PRN PRN PRN Reason: NAUSEA/VOMITING Pramipexole Dihydrochloride (Mirapex) 0.25 mg PO Q12H PRN PRN PRN Reason: Restless Legs Last Admin: 04/24/19 11:41 Dose: 0.25 mg Documented by: Quetiapine Fumarate (Seroquel) 50 mg PO QHS [facility] Last Admin: 04/25/19 22:37 Dose: 50 mg Documented by: Quetiapine Fumarate (Seroquel) 100 mg PO QHS [facility] Last Admin: 04/25/19 22:37 Dose: 100 mg Documented by: Sertraline HCl (Zoloft) 50 mg PO DAILY [facility] Last Admin: 04/25/19 10:27 Dose: 50 mg Documented by: STROKE Vital Signs/Narrative: Vital Signs Temp Pulse Resp BP Pulse Ox 04/26/19 06:00 98.1 F 65 16 101/72 100 Medical Necessity - Tobacco Use Smoking Status: Former smoker Tobacco Use: Cigarettes Assessment/Plan All Active Problems (Last Reviewed 04/23/19 @ 21:00 by Jeremy Akers MD) Opioid abuse (Acute) Suicidal ideation (Acute) Patient is a 23-year-old male with history of depression with anxiety as well as opiate dependence admitted with acute opioid withdrawal and suicidal ideation admitted to the regular nursing floor for further management. 1. Acute opioid withdrawal ?Patient was counseled regarding his opioid dependence. Admitted to regular nursing floor for medical stabilization using Subutex ?Patient still remains significantly symptomatic complaining of leg and abdominal cramps. In addition to Subutex patient has adjuvant medications to help with the symptoms. Did explain to patient he needs to be medically stable prior to be evaluated by the crisis team for his depression with suicidal ideation ?04/25/2019; patient seen improving symptomatically 04/26/2019;Seen symptoms significantly improved however still complains of feeling anxious. Patient is medically stable to be evaluated by the crisis center. 2. Suicidal ideation ?Patient currently being monitored one-to-one consult placed to the crisis team ?04/25/2019; plan is to consult the crisis team on 04/26/2019. 04/26/2019; patient stable to be evaluated by the crisis center 3. Depression with anxiety patient is on Seroquel as well as mirtazapine did continue 4. DVT prophylaxis low risk did encourage early ambulation 5. Tobacco dependence counseled on cessation, offered nicotine patch for tobacco cravings Code Visit Inpatient E&M: 72752 Subs Hosp L2
--- NOTE | 2019-04-26 08:20 | NURSING ---
Crisis called to come re-evaluate patient. Dr. Price states patient is medically stable for evaluation. Spoke with Hardeep from [facility] who states someone will be out to evaluate patient.
[2019-04-26] MEDS: Sertraline 50 MG Tablet PO (11:49)
--- NOTE | 2019-04-26 11:56 | NURSING ---
Crisis saw patient. According to ticket worker they feel patient is no longer a suicide risk. Dr. Price was made aware and he states we can dc the suicide sitter. patient will be dc to [facility] after last dose of buprenorphine around 1330.
--- NOTE | 2019-04-26 11:57 | DCINST_ITS ---
- Discharge Diagnoses Current Active Problems: Current Active and Chronic Problems (Last Reviewed 04/23/19 @ 21:00 by Jeremy Akers MD) Opioid abuse (Acute) Suicidal ideation (Acute) You will use the following diet at home:: No restrictions Discharge Activity: May not drive while taking narcotic pain medications. Allergies/Adverse Reactions: Allergies No Known Allergies Allergy (Verified 04/23/19 14:49) Medications to take at Discharge Buprenorphine HCl/Naloxone HCl [Buprenorp-Nalox 4-1 mg Sl Film] 1 ea SL BID 04/23/19 Gabapentin [Neurontin] 300 mg PO QHS 04/23/19 Hydroxyzine Pamoate 50 mg PO TID PRN 04/23/19 Mirtazapine 7.5 mg PO QHS 04/23/19 Quetiapine Fumarate 50 mg PO QHS 04/23/19 Quetiapine Fumarate 100 mg PO QHS 04/23/19 Sertraline HCl 50 mg PO DAILY 04/23/19 Primary Care Physician: Care Physician,No Primary [Primary Care Provider] - Test Results: Test results from this visit will be discussed in further detail at your follow- up appointment, if applicable. Please Follow Up With: [facility] When: on 04/26/2019 Proposed Discharge Date: 04/26/19
[2019-04-26 11:58] VITALS: BP 128/90; PULSE 95; RESP 18; TEMP 37.1; O2SAT 100
--- NOTE | 2019-04-26 12:00 | DS.PCM_ITS ---
Discharge Date and Diagnosis - Problem List Patient Problems: Active and Suspected Problems (Last Reviewed 04/23/19 @ 21:00 by Jeremy Akers MD) Opioid abuse (Acute) Suicidal ideation (Acute) Date of Admission: 04/23/19 Date of Discharge: 04/26/19 - Primary Discharge Diagnosis Active and Suspected Problems (Last Reviewed 04/23/19 @ 21:00 by Jeremy Akers MD) Opioid abuse (Acute) Suicidal ideation (Acute) Hospital Course and Treatment Summary of Care Provided: Patient is a 23-year-old male with history of depression with anxiety as well as opiate dependence admitted with acute opioid withdrawal and suicidal ideation admitted to the regular nursing floor for further management. 1. Acute opioid withdrawal ?Patient was counseled regarding his opioid dependence. Admitted to regular nursing floor for medical stabilization using Subutex ?Patient still remains significantly symptomatic complaining of leg and abdominal cramps. In addition to Subutex patient has adjuvant medications to help with the symptoms. Patient was seen by the crisis team once he was deemed to be medically stable. He was deemed safe enough to be discharged. Patient was discharged to [facility] to continue with his recuperation 2. Suicidal ideation ~ monitored one-to-one consult placed to the crisis team ~ evaluated by the crisis center to be safe enough to be discharged. 3. Depression with anxiety patient is on Seroquel as well as mirtazapine did continue 4. DVT prophylaxis low risk did encourage early ambulation 5. Tobacco dependence counseled on cessation, offered nicotine patch for tobacco cravings Patient Problems: Active and Suspected Problems (Last Reviewed 04/23/19 @ 21:00 by Jeremy Akers MD) Opioid abuse (Acute) Suicidal ideation (Acute) Objective: GENERAL: cooperative HEENT: Atraumatic; EYES; Anicteric, Normal Conjunctiva NECK; supple, normal thyroid, RESPIRATORY: Diminished to auscultation CARDIOVASCULAR: Regular S1 S2, GI: soft, normoactive bowel sounds, : No Renal angle tenderness; EXTREMITIES: No edema, no clubbing, MUSCULOSKELETAL: no muscle waisting NEURO: Awake; no lateralizing signs. SKIN: No Rash - Physical Exam Vitals/I&O's: Vital Signs Temp Pulse Resp BP Pulse Ox 98.8 F 95 18 128/90 H 100 04/26/19 11:58 04/26/19 11:58 04/26/19 11:58 04/26/19 11:58 04/26/19 11:58 Oxygen Delivery Method Room Air Weight: 86.4 kg Body Mass Index (BMI) 25.1 Intake and Output for Last 24 Hours 04/24/19 04/25/19 04/26/19 23:59 23:59 23:59 Intake Total 2500 / 3500 2850 / 3450 600 / 600 Output Total 0 / 0 Balance 2500 / 3500 2850 / 3450 600 / 600 Current Medications Acetaminophen (Tylenol) 650 mg PO Q6H PRN PRN PRN Reason: Pain Score 1-10/Temp > 100.7 F Last Admin: 04/24/19 09:34 Dose: 650 mg Documented by: Buprenorphine HCl (Buprenorphine Hcl) 2 mg SL Q12H [facility]; Taper Stop: 04/27/19 01:29 Last Admin: 04/26/19 02:01 Dose: 2 mg Documented by: Dicyclomine HCl (Bentyl) 20 mg PO Q6H PRN PRN PRN Reason: Abdomnial Discomfort Glucagon () 1 mg IM .X1 PRN PRN Reason: Hypoglycemia Hydroxyzine Pamoate (Vistaril Pamoate Capsule) 50 mg PO Q6H PRN PRN PRN Reason: Mild Anxiety Last Admin: 04/25/19 22:38 Dose: 50 mg Documented by: Dextrose (Dextrose 10%-Water) 250 mls @ 999 mls/hr IV .Q16M PRN; Protocol PRN Reason: HYPOGLYCEMIA Mirtazapine (Remeron) 7.5 mg PO QHS [facility] Last Admin: 04/25/19 22:37 Dose: 7.5 mg Documented by: Nicotine (Nicoderm Cq (Pbkc)) 21 mg TRANSDERM. DAILY [facility] Last Admin: 04/26/19 11:48 Dose: 21 mg Documented by: Nutritional Formula (Lactose Free) (Ensure Enlive) 120 ml PO 4X/DAY [facility] Last Admin: 04/26/19 11:40 Dose: Not Given Documented by: Ondansetron HCl (Zofran) 4 mg IV Q8H PRN PRN PRN Reason: NAUSEA/VOMITING Pramipexole Dihydrochloride (Mirapex) 0.25 mg PO Q12H PRN PRN PRN Reason: Restless Legs Last Admin: 04/24/19 11:41 Dose: 0.25 mg Documented by: Quetiapine Fumarate (Seroquel) 50 mg PO QHS [facility] Last Admin: 04/25/19 22:37 Dose: 50 mg Documented by: Quetiapine Fumarate (Seroquel) 100 mg PO QHS [facility] Last Admin: 04/25/19 22:37 Dose: 100 mg Documented by: Sertraline HCl (Zoloft) 50 mg PO DAILY [facility] Last Admin: 04/26/19 11:49 Dose: 50 mg Documented by: Discharge Diet: No Restrictions Discharge Activity: May not drive while taking narcotic pain medications. Home Medications: Medications to take at Discharge Buprenorphine HCl/Naloxone HCl [Buprenorp-Nalox 4-1 mg Sl Film] 1 ea SL BID 04/23/19 Gabapentin [Neurontin] 300 mg PO QHS 04/23/19 Hydroxyzine Pamoate 50 mg PO TID PRN 04/23/19 Mirtazapine 7.5 mg PO QHS 04/23/19 Quetiapine Fumarate 50 mg PO QHS 04/23/19 Quetiapine Fumarate 100 mg PO QHS 04/23/19 Sertraline HCl 50 mg PO DAILY 04/23/19 Primary Care Physician: Care Physician,No Primary [Primary Care Provider] - Please Follow Up With: [facility] When: on 04/26/2019 Disposition: Home Minutes spent on discharge:: 35 Patient Condition:: Stable Medical Necessity - Tobacco Use Smoking Status: Former smoker Tobacco Use: Cigarettes Meaningful Use Info Meaningful Use Diagnoses (Choose all that apply): None applicable Code Visit Inpatient E&M: 90838 Disch Hosp
--- NOTE | 2019-04-26 12:08 | CASEMGMT ---
Social Work Note Pt has been cleared by crisis and will be discharged this afternoon. WILBERTO met with pt and introduced self and role at [facility]. Pt is alert and orientated x3. Pt is aware that he will be discharged today and confirms that his plan is to go to [facility] at discharge. WILBERTO informed pt that this worker can call [facility] and let them know he will be discharged and have [facility] call pt. Pt is agreeable to this worker calling [facility]. Pt denied additional needs or concerns at this time. WILBERTO placed a call to David at [facility]. David states she will call pt to arrange appointment. Plan: [facility] today Stephanie Myers CERTIFIED MEDICAL TRANSCRIPTIONIST, MEDICAL LABORATORY SPECIALIST
== END 2019-04-26 13:38 | disposition home or self-care (01) | DRG 773 ==
LOC: ED 15:32 → MS3 20:46
PROVIDERS: Admitting Provider Hospitalist; Emergency Provider Emergency Medicine; Referring Provider Hospitalist; Visit Provider Internal Medicine
DX: F11.23 Opioid dependence with withdrawal (principal); R45.851 Suicidal ideations; F32.9 Major depressive disorder, single episode, unspecified; F41.9 Anxiety disorder, unspecified; F17.210 Nicotine dependence, cigarettes, uncomplicated; Z81.8 Family history of other mental and behavioral disorders
CPT/HCPCS: 36415; 80048; 80307; 80320; 81001; 85025; 97802; 99284; G0480

== ENCOUNTER 2019-10-24 10:03 | Inpatient (IN) | payer MEDICAID, SELFPAY ==
[2019-04-23 22:15] VITALS: BMI 25.1
[2019-10-24 10:04] VITALS: BP 142/94; PULSE 99; RESP 16; TEMP 36.1; O2SAT 97; BMI 25.0
--- NOTE | 2019-10-24 10:24 | ED.VISSUMM ---
- ER Visit Summary Date of Service: 10/24/19 Chief Complaint: Detox History of Present Illness: The patient is a 24 M who presents requesting detox from heroin. Patient states he uses about 3 g/day. Patient states he normally snorts the heroin. Patient states he has injected couple of times in the past. Patient states his last use was approximately 6 hours prior to arrival. Patient denies any suicidal or homicidal ideations. Patient does have history of depression and anxiety. Patient takes Xanax as needed for his anxiety. Physical Examination: Vital signs are stable. Patient is afebrile. Patient is in no acute distress. Oral mucosa is pink and moist. Neck is supple. Trachea is midline. There is no JVD noted. Heart was regular rate and rhythm. Lungs are clear and equal bilaterally. Abdomen is soft. Bowel sounds are normal. There is no tenderness. There is no rebound or guarding noted. Skin is warm dry. Cranial nerves II through XII are intact. There are no focal motor or sensory deficits noted. Extremities are intact. There is no calf tenderness or edema. Test Results: CBC is within normal limits. Comprehensive metabolic profile and PT with INR were all within normal limits. Serum alcohol level was normal. Urine tox screen was positive for opiates, barbiturates, methamphetamines, and cannabinoids. Emergency Department Course and Treatment: Case was discussed with the hospitalist. Patient will be admitted for detox. Patient understands and is agreeable with the plan. All questions were answered. Disposition: Admit to hospital Impression: Opiate withdrawal This note was generated with [employer] dictation software. It may contain incorrect words, spelling, and punctuation that were not noted in review of the chart prior to signing ED Disposition - Plan for ED Patient: Disposition: Acute Care Hospital [facility] Diagnosis: Opiate withdrawal
--- NOTE | 2019-10-24 10:34 | CM.ED ---
Social Work Consult: Substance Abuse Informant: Dr. Pineda Chief Complaint: Patient seeking medical management of detox symptoms. Patient states substance of choice is Heroine. Marital/Social History: Single Living Situation: Reports no concerns for housing Support/Resources: Reports support from family/friends that are non users. Mental Health Treatment/History: Reports Anxiety and Depression. Patient states to take medication to manage mental health. Patient denies any history of inpatient psychiatric placement. Substance Abuse/Use: Reports Heroine use with last use being this morning at 4am. Patient denies any other substance abuse/use. Patient states to have gone through [facility] detox program 1 year ago and to have been in [facility]. Patient states to have been sober for 10 months. Patient is unsure of triggers/stressor that led to patient relapse. Risk to Self/Others: Denies active suicidal thoughts/plans/intents. Patient states history of suicidal thoughts one year ago. Patient denies any suicidal attempts. Patient denies any homicidal plans/intents/thoughts. Assessment: Met with patient in room. Introduced self and social science professor role. Patient seeking admission to [facility]. Patient educated on [facility] program and guidelines, patient is verbally agreeable. Patient states desire to have residential as follow up care. Patient states concern with being taken off of Xanax. This social science professor encouraging patient to be open with doctors about patient concern about possibly having Xanax stopped per ED physician. Patient states plan and intent to speak with hospitalist managing patient care about patient concerns. Patient voicing no further questions. Telephone call to Nella Handley. This social science professor updating Nella on patient admission. Nella states plan to come and evaluate patient today. PLAN: Admit to [facility] program. Dr. Pineda updating on social work assessment and patient concern about Xanax. Alyssa Marti OPERATIONS ADVISOR, [place]
--- NOTE | 2019-10-24 10:35 | ED.RN ---
[facility] program code of conduct went overr with pt and signed. pt agreeable at this time. denies need of nicotine patch at this time. pt aware that needs ua.
[2019-10-24 10:36] LABS: Absolute Lymphocyte Count 1.53 X10^3/uL (0.83-4.51); Absolute Neutrophil Count 6.1 X10^3/uL (2.0-7.7); Basophil# 0.02 X10^3/uL; Basophil% 0.2 % (0-1); Eosinophil# 0.19 X10^3/uL; Eosinophils% 2.2 % (0-5); Hematocrit 43.2 % (40-54); Hemoglobin 14.4 g/dL (13.0-16.5); Lymphocyte # 1.53 X10^3/ul (4.0); Mean Corp Hgb Conc 33.3 g/dL (32-36); Mean Corpuscular Volume 92.9 fL (80-94); Mean Platelet Vol. 8.6 fl (6.2-12.0); Monocyte# 0.67 X10^3/uL; Monocyte% 7.9 % (0-10); NRBC Flagged by Analyzer 0 % (0-5); Neutrophil # 6.07 X10^3/uL (2.7-7.7); Neutrophil % 71.6 % (47-70); Platelet Count 298 K/mm3 (150-450); RBC Distribution Width CV 12.4 % (11.6-14.6); RBC Distribution Width SD 41.8 fl (35.1-43.9); Red Blood Count 4.65 M/mm3 (4.6-6.2); White Blood Count 8.5 K/mm3 (4.4-11.0)
[2019-10-24 10:52] LABS: ALB/GLOB Ratio 1.2 RATIO (0.9-2.4); AST(SGOT) 8 U/L (15-37); Alanine Aminotransfer ALT/SGPT 22 U/L (16-61); Albumin, Serum 4.1 g/dL (3.2-5.0); Alkaline Phosphatase 84 U/L (45-117); Anion Gap 4 (5-15); BUN 18 mg/dL (7-18); BUN/Creat Ratio 18.8 RATIO (10-20); Chloride 106 mmol/L (98-107); Creatinine, Serum 0.96 mg/dL (0.70-1.30); EST Glomerular Filtration Rate 102 mL/min (>60); Est Glom Filt Rate - Afr Amer 123 mL/min (>60); Estimated Creatinine Clearance 130.23 ml/min; Globulin 3.5 g/dL (2.2-4.2); Glucose 131 mg/dL (74-106); Potassium 3.8 mmol/L (3.5-5.1); Protein, Total 7.6 g/dL (6.4-8.2); Sodium Level 139 mmol/L (136-145)
--- NOTE | 2019-10-24 10:59 | NURSING ---
MED SURG OPIATE WITHDRAWAL LEBRON
[2019-10-24 11:17] LABS: Alcohol, Blood (Medical)-Serum < 3.0 mg/dL
[2019-10-24 11:24] LABS: International Normalized Ratio 1.1; Prothrombin Time (Protime)PT. 13.7 SECONDS (11.7-14.9)
--- NOTE | 2019-10-24 11:30 | PCM.HP.STD ---
Problem List (1) Opioid abuse Status: Acute (2) Suicidal ideation Status: Acute (3) Opiate withdrawal Status: Acute (4) Chronic opioid use and dependence Status: Chronic History of Present Illness Date of Admission: 10/24/19 Chief Complaint: Opioid withdrawal symptoms The patient is a 24 year old M who came to ER for heroin detoxification. Patient uses 3 g heroin per day mainly snorting heroin. He has used injection couple times about 2 3 years ago. Last use was 6 hours prior to arrival. Patient also has anxiety and depression and takes sertraline and Xanax 2 mg twice daily as needed prescribed. He is having anxiety symptoms but denies nausea, vomiting, diarrhea. His myalgia, hot and cold sensation but denies hallucination, suicidal ideation or thought. No alteration of perception. He had suicidal ideations in the past but never attempted suicide as per the patient. [] In ED, vital signs, heart rate 99/min. No fever. Blood pressure 142/94. Past Medical History Past Medical History (Chronic Problems): Chronic Problems (Last Reviewed 04/23/19 @ 21:[address] Jeremy Akers MD) Chronic opioid use and dependence (Chronic) Medical History: Medical History (Last Reviewed 04/23/19 @ 21:[address] Jeremy Akers MD) Opioid dependence F11.20 Allergies No Known Allergies Allergy (Verified 10/24/19 10:03) Home Medications: Ambulatory Orders Medication Instructions Recorded Sertraline HCl 50 mg PO DAILY 04/23/19 ALPRAZolam [Xanax] 2 mg PO BID PRN PRN 10/24/19 Surgical History: - - Left knee surgery Smoking Status: Current every day smoker Tobacco Use: Cigarettes - *Family History Maternal History Items: - - He reported that his mother has depression. Also previously his mother was using drugs. Mother has bipolar disorder. Paternal History Items: - - Previously his father was using drugs Review of Systems Constitutional: Denies: Chills, Fever, Weight Change HEENT: Denies: Head Aches, Sinus Congestion, Sinus Drainage Cardiovascular: Denies: Chest Pain, Palpitations Respiratory: Denies: Cough, Shortness of breath at rest, Sputum production Gastrointestinal: Denies: Abdominal Pain, Nausea, Vomiting Genitourinary: Denies: Dysuria Musculoskeletal: Denies: Joint Pain, Joint Tenderness Skin: Denies: Rash, Wounds Neurological: Denies: Numbness, Tingling, Focal weakness Psychiatric: Reports: Anxiety, Depression. Denies: Homicidal Ideations, Suicidal Ideations Hematologic/ Lymphatic: Denies: Easy Bruising, Easy Bleeding VTE Information - Inpt Only VTE Present on Admission: No VTE Mechan Device Prophylaxis: None VTE Pharm Prophylaxis ordered?: No Reason prophylaxis not ordered:: Procedure Not Indicated Patient Problems: Active and Suspected Problems (Last Reviewed 04/23/19 @ 21:[address] Jeremy Akers MD) Opiate withdrawal (Acute) - Physical Exam Vitals/I&O's: Vital Signs Temp Pulse Resp BP Pulse Ox 97.9 F 81 18 136/81 H 96 10/24/19 12:15 10/24/19 12:15 10/24/19 12:15 10/24/19 12:15 10/24/19 12:15 Oxygen Delivery Method Room Air Weight: 181 lb 14.102 oz Body Mass Index (BMI) 24.6 General: Alert, Oriented x3, Cooperative HEENT: Atraumatic, PERRLA, EOMI, Normocephalic Oral: No Gingival or Mucosal Lesions/ Ulcerations, Dry Mucosa Neck: Supple, No JVD, Negative Carotid Bruits Lungs: Clear to auscultation, Normal air movement, No rhonchi, No wheeze, No rales Cardiovascular: Regular rate, Regular Rhythm, Normal S1, Normal S2, No murmurs Abdomen: Bowel Sounds Present, Soft, Non Tender, Non-Distended Extremities: No edema, Capillary Refill Less than 3 Seconds Skin: No rashes, No breakdown Musculoskeletal: No Tenderness to Palpation of Joints or Extremities Neurological: Cranial nerves II-XII grossly intact, Deep Tendon Reflexes 2+/4 and Symmetrical, Neuro grossly intact, Motor Exam 5/5 strength throughout Psych/Mental Status: Normal Affect, Appropriate, Anxious Laboratory Results 10/24/19 10:30: WBC 8.5, RBC 4.65, Hgb 14.4, Hct 43.2, MCV 92.9, MCH 31.0, MCHC 33.3, RDW Std Deviation 41.8, RDW Coeff of González 12.4, Plt Count 298, MPV 8.6, Immature Gran % (Auto) 0.100, Neut % (Auto) 71.6 H, Lymph % (Auto) 18.0 L, [place] % (Auto) 7.9, Eos % (Auto) 2.2, Baso % (Auto) 0.2, Absolute Neuts (auto) 6.1, Absolute Lymphs (auto) 1.53, Nucleated RBC % 0 10/24/19 10:30: Sodium 139, Potassium 3.8, Chloride 106, Carbon Dioxide 29.0, Anion Gap 4 L, BUN 18, Creatinine 0.96, Estim Creat Clear Calc 130.23, Est GFR (MDRD) Af Amer 123, Est GFR (MDRD) Non-Af 102, BUN/Creatinine Ratio 18.8, Glucose 131 H, Calcium 9.0, Total Bilirubin 0.50, AST 8 L, ALT 22, Alkaline Phosphatase 84, Total Protein 7.6, Albumin 4.1, Globulin 3.5, Albumin/Globulin Ratio 1.2 10/24/19 10:30: Ethyl Alcohol < 3.0 10/24/19 10:30: Magnesium 2.0 10/24/19 10:30: PT 13.7, INR 1.1 10/24/19 11:02: Urine Opiates Screen POSITIVE H, Urine Methadone Screen NEGATIVE, Ur Barbiturates Screen POSITIVE H, Ur Phencyclidine Scrn NEGATIVE, Ur Amphetamines Screen NEGATIVE, U Methamphetamin-MDMA POSITIVE H, U Benzodiazepines Scrn NEGATIVE, Urine Cocaine Screen NEGATIVE, U Cannabinoids Screen POSITIVE H, Ur Drug Screen Comment Current Medications Acetaminophen (Tylenol) 500 mg PO Q4H PRN PRN PRN Reason: Temp > 100.4 F Al Hydroxide/Mg Hydroxide (Mylanta Ii) 30 ml PO Q6H PRN PRN PRN Reason: dyspesia Alprazolam (Xanax) 0.25 mg PO BID PRN PRN PRN Reason: ANXIETY Last Admin: 10/24/19 12:36 Dose: 0.25 mg Documented by: Bisacodyl (Dulcolax) 10 mg RECTAL DAILY PRN PRN Reason: Constipation Buprenorphine HCl (Buprenorphine Hcl) 0 mg SL Q8H MARKIE; Taper Stop: 10/27/19 10:59 Clonidine (Catapres) 0.1 mg PO Q8H PRN PRN PRN Reason: RESTLESSNESS Dicyclomine HCl (Bentyl) 20 mg PO Q6H PRN PRN PRN Reason: Abdominal Discomfort Gabapentin (Neurontin) 300 mg PO Q8H PRN PRN PRN Reason: moderate to severe anxiety Hydroxyzine Pamoate (Vistaril Pamoate Capsule) 50 mg PO Q6H PRN PRN PRN Reason: mild anxiety Lactated Ringer's () 1,000 mls @ 125 mls/hr IV .Q8H MARKIE Stop: 10/24/19 20:10 Last Admin: 10/24/19 12:36 Dose: 125 mls/hr Documented by: Ibuprofen (Motrin) 600 mg PO Q8H PRN PRN PRN Reason: Pain Score 1-10/10 Loperamide HCl (Imodium) 2 mg PO Q4H PRN PRN PRN Reason: LOOSE STOOLS Methocarbamol (Methocarbamol) 1,500 mg PO Q6H PRN PRN PRN Reason: MUSCLE SPASM Nicotine (Nicoderm Cq (Pbkc)) 21 mg TRANSDERM. DAILY MARKIE Ondansetron HCl (Zofran Odt) 8 mg PO Q8H PRN PRN PRN Reason: NAUSEA Senna (Senokot) 2 tablet PO QHS PRN PRN Reason: Constipation Trazodone HCl (Desyrel) 100 mg PO QHS PRN PRN PRN Reason: INSOMNIA Assessment/Plan All Active Problems (Last Reviewed 04/23/19 @ 21:[address] Jeremy Akers MD) Opioid abuse (Acute) Suicidal ideation (Acute) Opiate withdrawal (Acute) 24-year-old question intermittent with chronic opioid use, 3 g/day came to ER for opioid detoxification. Currently mild withdrawal symptoms with anxiety. Patient was tested negative for chronic hepatitis C and HIV about a month ago as per the patient. No records available. Last use was 6 hours prior to ER arrival. 1. Chronic heroin/opioid use and dependence with mild withdrawal symptoms: Patient is being admitted floor. U tox positive of opioids, barbiturates, methamphetamine and cannabinoids. Patient denies use of methamphetamine, barbiturates but uses Xanax. On buprenorphine based medication regimen for control of withdrawal symptoms. On hydroxyzine, Bentyl, gabapentin, clonidine, Xanax, methocarbamol and loperamide as needed for supportive treatment. 2. Chronic smoking: Patient smokes cigarettes a pack per day. On nicotine patch. 3. Anxiety and depression: Xanax home dose continued as needed 4. DVT prophylaxis: Low risk early ambulation encouraged. No prophylaxis indicated. Inpatient E&M: 41723 Init Hosp L3
[2019-10-24 12:00] VITALS: BP 113/75; PULSE 72; RESP 18; TEMP 37.3; O2SAT 99
[2019-10-24 12:13] LABS: Amphetamine Urine VISTA NEGATIVE (<1000 ng/mL); Barbiturate Urine VISTA POSITIVE (< 200 ng/mL); Benzodiazepine Urine VISTA NEGATIVE (< 200 ng/mL); Cocaine Urine VISTA NEGATIVE (< 300 ng/mL); Ecstacy Urine VISTA POSITIVE (< 500 ng/mL); Methadone Urine VISTA NEGATIVE (< 300 ng/mL); PCP Urine VISTA NEGATIVE (< 25 ng/mL); THC Urine VISTA POSITIVE (< 50 ng/mL); Vista UDS pH Range 5
[2019-10-24 12:15] VITALS: BP 136/81; PULSE 81; RESP 18; TEMP 36.6; O2SAT 96; BMI 24.6; BMI 24.7
[2019-10-24] MEDS: ALPRAZolam 0.25 MG Tablet PO ×2 (12:36→20:26)
[2019-10-24] MEDS: Lactated Ringers 1,000 ML 125 ML IV (12:36)
[2019-10-24] MEDS: Buprenorphine HCl 2 MG TAB.SUBL 4 MG SL (17:55)
[2019-10-24] MEDS: cloNIDine HCl 0.1 MG Tablet PO (19:27)
[2019-10-24] MEDS: traZODone 100 MG Tablet PO (22:01)
[2019-10-24 22:03] VITALS: BP 112/65; PULSE 50; RESP 16; TEMP 37; O2SAT 99
[2019-10-25] MEDS: Buprenorphine HCl 2 MG TAB.SUBL 4 MG SL ×2 (01:59→10:42)
[2019-10-25 02:05] VITALS: BP 99/64; PULSE 66; RESP 16; TEMP 36.9; O2SAT 94
[2019-10-25 06:05] VITALS: BP 101/67; PULSE 55; RESP 16; TEMP 36.6; O2SAT 95
--- NOTE | 2019-10-25 09:46 | PN_ITS ---
Patient Problems: Active and Suspected Problems (Last Reviewed 04/23/19 @ 21:[address] Jeremy Akers MD) Opiate withdrawal (Acute) Vitals/I&O's: Vital Signs Temp Pulse Resp BP Pulse Ox 97.8 F 55 L 16 101/67 95 10/25/19 06:05 10/25/19 06:05 10/25/19 06:05 10/25/19 06:05 10/25/19 06:05 Oxygen Delivery Method Room Air Weight: 181 lb 14.102 oz Body Mass Index (BMI) 24.6 Intake and Output for Last 24 Hours 10/23/19 10/24/19 10/25/19 23:59 23:59 23:59 Intake Total 1610 / 1610 Balance 1610 / 1610 Laboratory Results 10/24/19 10:30: WBC 8.5, RBC 4.65, Hgb 14.4, Hct 43.2, MCV 92.9, MCH 31.0, MCHC 33.3, RDW Std Deviation 41.8, RDW Coeff of González 12.4, Plt Count 298, MPV 8.6, Immature Gran % (Auto) 0.100, Neut % (Auto) 71.6 H, Lymph % (Auto) 18.0 L, [place] % (Auto) 7.9, Eos % (Auto) 2.2, Baso % (Auto) 0.2, Absolute Neuts (auto) 6.1, Ab solute Lymphs (auto) 1.53, Nucleated RBC % 0 10/24/19 10:30: Sodium 139, Potassium 3.8, Chloride 106, Carbon Dioxide 29.0, Anion Gap 4 L, BUN 18, Creatinine 0.96, Estim Creat Clear Calc 130.23, Est GFR (MDRD) Af Amer 123, Est GFR (MDRD) Non-Af 102, BUN/Creatinine Ratio 18.8, Glucose 131 H, Calcium 9.0, Total Bilirubin 0.50, AST 8 L, ALT 22, Alkaline Phosphatase 84, Total Protein 7.6, Albumin 4.1, Globulin 3.5, Albumin/Globulin Ratio 1.2 10/24/19 10:30: Ethyl Alcohol < 3.0 10/24/19 10:30: Magnesium 2.0 10/24/19 10:30: PT 13.7, INR 1.1 10/24/19 11:02: Urine Opiates Screen POSITIVE H, Urine Methadone Screen NEGATIVE, Ur Barbiturates Screen POSITIVE H, Ur Phencyclidine Scrn NEGATIVE, Ur Amphetamines Screen NEGATIVE, U Methamphetamin-MDMA POSITIVE H, U Benzodiazepines Scrn NEGATIVE, Urine Cocaine Screen NEGATIVE, U Cannabinoids Screen POSITIVE H, Ur Drug Screen Comment Current Medications Acetaminophen (Tylenol) 500 mg PO Q4H PRN PRN PRN Reason: Temp > 100.4 F Al Hydroxide/Mg Hydroxide (Mylanta Ii) 30 ml PO Q6H PRN PRN PRN Reason: dyspesia Alprazolam (Xanax) 0.25 mg PO BID PRN PRN PRN Reason: ANXIETY Last Admin: 10/24/19 20:26 Dose: 0.25 mg Documented by: Bisacodyl (Dulcolax) 10 mg RECTAL DAILY PRN PRN Reason: Constipation Buprenorphine HCl (Buprenorphine Hcl) 4 mg SL Q8H MARKIE; Taper Stop: 10/27/19 17:59 Last Admin: 10/25/19 01:59 Dose: 4 mg Documented by: Clonidine (Catapres) 0.1 mg PO Q8H PRN PRN PRN Reason: RESTLESSNESS Last Admin: 10/24/19 19:27 Dose: 0.1 mg Documented by: Dicyclomine HCl (Bentyl) 20 mg PO Q6H PRN PRN PRN Reason: Abdominal Discomfort Gabapentin (Neurontin) 300 mg PO Q8H PRN PRN PRN Reason: moderate to severe anxiety Hydroxyzine Pamoate (Vistaril Pamoate Capsule) 50 mg PO Q6H PRN PRN PRN Reason: mild anxiety Ibuprofen (Motrin) 600 mg PO Q8H PRN PRN PRN Reason: Pain Score 1-10/10 Loperamide HCl (Imodium) 2 mg PO Q4H PRN PRN PRN Reason: LOOSE STOOLS Methocarbamol (Methocarbamol) 1,500 mg PO Q6H PRN PRN PRN Reason: MUSCLE SPASM Nicotine (Nicoderm Cq (Pbkc)) 21 mg TRANSDERM. DAILY MARKIE Last Admin: 10/24/19 17:55 Dose: 21 mg Documented by: Ondansetron HCl (Zofran Odt) 8 mg PO Q8H PRN PRN PRN Reason: NAUSEA Senna (Senokot) 2 tablet PO QHS PRN PRN Reason: Constipation Trazodone HCl (Desyrel) 100 mg PO QHS PRN PRN PRN Reason: INSOMNIA Last Admin: 10/24/19 22:01 Dose: 100 mg Documented by: STROKE Vital Signs/Narrative: Vital Signs Temp Pulse Resp BP Pulse Ox 10/25/19 06:05 97.8 F 55 L 16 101/67 95 Medical Necessity - Tobacco Use Smoking Status: Current every day smoker Tobacco Use: Cigarettes Assessment/Plan All Active Problems (Last Reviewed 04/23/19 @ 21:[address] Jeremy Akers MD) Opioid abuse (Acute) Suicidal ideation (Acute) Opiate withdrawal (Acute)
[2019-10-25 10:37] VITALS: BP 112/73; PULSE 79; RESP 18; TEMP 36.8; O2SAT 100
[2019-10-25] MEDS: ALPRAZolam 0.25 MG Tablet PO (10:42)
--- NOTE | 2019-10-25 11:20 | NURSING ---
Patient was found in his street clothes walking in the [place]. He was walking towards the unit exit to leave the building. Charge nurse stopped patient and asked him where he was going. He says he is leaving he doesn't feel like sitting here anymore. He signed the AMA papers with this nurse as witness. Dr. Castañeda was notified.
--- NOTE | 2019-10-25 12:03 | DS.PCM_ITS ---
Discharge Date and Diagnosis Date of Admission: 10/24/19 Date of Discharge: 10/25/19 - Secondary Discharge Diagnosis Chronic Problems: Chronic Problems (Last Reviewed 04/23/19 @ 21:[address] Jeremy Akers MD) Chronic opioid use and dependence (Chronic) Hospital Course and Treatment Summary of Care Provided: The patient is a 24-year-old male intermittent with chronic opioid use, 3 g/day came to ER for opioid detoxification. Currently mild withdrawal symptoms with anxiety. Patient was tested negative for chronic hepatitis C and HIV about a month ago as per the patient. No records available. Last use was 6 hours prior to ER arrival. 1. Chronic heroin/opioid use and dependence with mild withdrawal symptoms: Patient was being admitted floor. U tox positive of opioids, barbiturates, methamphetamine and cannabinoids. Patient denies use of methamphetamine, barbiturates but uses Xanax. She was started on buprenorphine based medication regimen for control of withdrawal symptoms. Patient signed AMA. Patient is cognizant and understands the risk and complications of signing AMA including return of withdrawal symptoms and may lead to in extreme condition. 2. Chronic smoking: Patient smokes cigarettes a pack per day. On nicotine patch. 3. Anxiety and depression: Xanax home dose continued as needed 4. DVT prophylaxis: Low risk early ambulation encouraged. No prophylaxis indicated. Objective: Patient was seen and examined. Earlier patient agreed to stay to complete the buprenorphine based medication for opioid detox and control of withdrawal symptoms. Patient denies hallucinations, abdominal pain or other withdrawal symptoms. - Physical Exam Vitals/I&O's: Vital Signs Temp Pulse Resp BP Pulse Ox 98.3 F 79 18 112/73 100 10/25/19 10:37 10/25/19 10:37 10/25/19 10:37 10/25/19 10:37 10/25/19 10:37 Oxygen Delivery Method Room Air Weight: 181 lb 14.102 oz Body Mass Index (BMI) 24.6 Intake and Output for Last 24 Hours 10/23/19 10/24/19 10/25/19 23:59 23:59 23:59 Intake Total 1610 / 1610 Balance 1610 / 1610 General: Alert, Oriented x3, Cooperative HEENT: Atraumatic, PERRLA, EOMI, Normocephalic Neck: Supple, No JVD, Negative Carotid Bruits Lungs: Clear to auscultation, Normal air movement, No rhonchi, No wheeze, No rales Cardiovascular: Regular rate, Regular Rhythm, Normal S1, Normal S2, No murmurs Abdomen: Bowel Sounds Present, Soft, Non Tender, Non-Distended Extremities: No edema, Capillary Refill Less than 3 Seconds Skin: No rashes, No breakdown Musculoskeletal: No Tenderness to Palpation of Joints or Extremities Neurological: Cranial nerves II-XII grossly intact, Deep Tendon Reflexes 2+/4 and Symmetrical, Neuro grossly intact, Motor Exam 5/5 strength throughout Psych/Mental Status: Normal Affect, Appropriate Laboratory Results 10/24/19 11:02: Urine Opiates Screen POSITIVE H, Urine Methadone Screen NEGATIVE, Ur Barbiturates Screen POSITIVE H, Ur Phencyclidine Scrn NEGATIVE, Ur Amphetamines Screen NEGATIVE, U Methamphetamin-MDMA POSITIVE H, U Benzodiazepines Scrn NEGATIVE, Urine Cocaine Screen NEGATIVE, U Cannabinoids Screen POSITIVE H Home Medications: Medications to take at Discharge Sertraline HCl 50 mg PO DAILY 04/23/19 ALPRAZolam [Xanax] 2 mg PO BID PRN PRN 10/24/19 Primary Care Physician: Care Physician,No Primary [Primary Care Provider] - Medical Necessity - Tobacco Use Smoking Status: Current every day smoker Tobacco Use: Cigarettes Meaningful Use Info Meaningful Use Diagnoses (Choose all that apply): None applicable Inpatient E&M: 12910 [facility]
== END 2019-10-25 11:19 | disposition left against medical advice (07) | DRG 770 ==
LOC: ED 10:56 → MS3 11:12
PROVIDERS: Admitting Provider Internal Medicine; Emergency Provider Emergency Medicine; Visit Provider Internal Medicine
DX: F11.23 Opioid dependence with withdrawal (principal); F17.210 Nicotine dependence, cigarettes, uncomplicated; F32.9 Major depressive disorder, single episode, unspecified; F41.9 Anxiety disorder, unspecified; Z91.5 Personal history of self-harm; Z81.8 Family history of other mental and behavioral disorders; Z53.29 Procedure and treatment not carried out because of patient's decision for other reasons
CPT/HCPCS: 80053; 80307; 80320; 83735; 85025; 85610; 99284; 99406; J7120; A4216; G0480